=== PATIENT | male | born 1940 | race Caucasian/White ===

== ENCOUNTER 2018-08-05 11:44 | Day surgery (SDC) | payer MEDICARE, OTHER ==
[~2018-08-05] VITALS: Wt 97.7 kg
[~2018-08-05 11:44] MED LIST: SIMV10 PO
--- NOTE | 2018-08-05 13:45 | NUR ---
History, Chart, Medications and Allergies reviewed before start of procedure. PT HAS SMALL AMOUNT OF CEREAL AND MILK AT 0800. Patient States Post-Procedure ride home has been arranged. WILL MAKE AND DR. OVALLE AWARE OF NPO STATUS.
--- NOTE | 2018-08-05 17:06 | NUR ---
1700- TO STEP DOWN. DR. JACQUES IN TO SEE PT. GOOD CMS TO RIGHT TOES. DENIES PAIN OR NAUSEA.
--- NOTE | 2018-08-05 18:26 | NUR ---
Discharge instructions reviewed with patient. Patient verbalizes understanding. Copy given to patient to take home. PATIENT REPORTS HAS FULL SCRIPT FOR PAIN MEDS GIVEN EARLIER FOR INJURY THAT HE HAS NOT TAKEN ANY MEDICATIONS. REPORTS PAIN TOLERABLE AND DECLINES MEDICATION PROIR TO DISCHARGE. DENIES ANY NAUSEA. Discharged via wheelchair to private car for ride home.
== END 2018-08-05 12:00 | disposition home or self-care (01) ==
LOC: ORSCMMR 11:44 → ORD 15:45
PROVIDERS: Orthopaedic Surgery
PROC: 0YJC0ZZ Inspection of Right Upper Leg, Open Approach (ICD-10-PCS; principal; 2018-08-05 14:15)
DX: S76.111A Strain of right quadriceps muscle, fascia and tendon, initial encounter (principal); E78.5 Hyperlipidemia, unspecified; Z79.899 Other long term (current) drug therapy; W10.9XXA Fall (on) (from) unspecified stairs and steps, initial encounter
CPT/HCPCS: J0690; J1100; J1885; J2250; J2405; J3010; J7120

== ENCOUNTER 2019-05-08 12:47 | Day surgery (SDC) | payer MEDICARE, OTHER ==
[~2019-05-08] VITALS: Ht 182.9 cm; Wt 97.4 kg
== END 2019-05-08 15:57 | disposition home or self-care (01) ==
LOC: ORSCSDS 12:47
PROVIDERS: Internal Medicine Gastroenterology
PROC: 0DBK8ZX Excision of Ascending Colon, Via Natural or Artificial Opening Endoscopic, Diagnostic (ICD-10-PCS; principal; 2019-05-08 14:15)
DX: Z12.11 Encounter for screening for malignant neoplasm of colon (principal); D12.4 Benign neoplasm of descending colon; K64.8 Other hemorrhoids; K57.30 Diverticulosis of large intestine without perforation or abscess without bleeding; Z83.71 Family history of colonic polyps; E78.5 Hyperlipidemia, unspecified; E66.9 Obesity, unspecified; Z68.30 Body mass index [BMI] 30.0-30.9, adult; Z79.899 Other long term (current) drug therapy
CPT/HCPCS: 88305; J2704; J7120

== ENCOUNTER → 2021-02-17 | Outpatient (CLI) | payer MEDICARE, OTHER | END | disposition home or self-care (01) | LOC: LAB SHORT 12:05 → LAB 12:05 | DX: D48.5 Neoplasm of uncertain behavior of skin (principal) | CPT/HCPCS: 88305 ==